=== PATIENT | female | born 1970 | race Caucasian/White ===

== ENCOUNTER 2016-07-02 07:43 | Day surgery (SDC) | payer OTHER | END 2016-07-02 13:51 | disposition home or self-care (01) | LOC: SDC 07:43 | DX: M23.312 Other meniscus derangements, anterior horn of medial meniscus, left knee (principal); M17.12 Unilateral primary osteoarthritis, left knee; M65.862 Other synovitis and tenosynovitis, left lower leg; M23.352 Other meniscus derangements, posterior horn of lateral meniscus, left knee; M06.9 Rheumatoid arthritis, unspecified; I10 Essential (primary) hypertension; G43.909 Migraine, unspecified, not intractable, without status migrainosus; G47.33 Obstructive sleep apnea (adult) (pediatric); R73.03 Prediabetes; F17.210 Nicotine dependence, cigarettes, uncomplicated; Z88.6 Allergy status to analgesic agent; Z88.8 Allergy status to other drugs, medicaments and biological substances; Z79.899 Other long term (current) drug therapy; Z82.49 Family history of ischemic heart disease and other diseases of the circulatory system; Z90.49 Acquired absence of other specified parts of digestive tract; Z90.89 Acquired absence of other organs | CPT/HCPCS: J0171; J1885; J2704; J2765 ==

== ENCOUNTER 2016-07-11 20:17 | Emergency (ER) | payer OTHER | END 2016-07-11 23:33 | disposition home or self-care (01) | LOC: ER 20:17 | DX: G43.909 Migraine, unspecified, not intractable, without status migrainosus (principal); F17.210 Nicotine dependence, cigarettes, uncomplicated; Z88.6 Allergy status to analgesic agent | CPT/HCPCS: 96361; 96365; 96367; 96375; J1100; J1200; J1885; J2765 ==

== ENCOUNTER 2016-07-19 23:55 | Emergency (ER) | payer OTHER | END 2016-07-20 01:31 | disposition home or self-care (01) | LOC: ER 23:55 | DX: L02.219 Cutaneous abscess of trunk, unspecified (principal); K21.9 Gastro-esophageal reflux disease without esophagitis; E11.9 Type 2 diabetes mellitus without complications; I10 Essential (primary) hypertension; F32.9 Major depressive disorder, single episode, unspecified; F41.9 Anxiety disorder, unspecified; G43.909 Migraine, unspecified, not intractable, without status migrainosus; F17.210 Nicotine dependence, cigarettes, uncomplicated; Z90.49 Acquired absence of other specified parts of digestive tract; Z90.710 Acquired absence of both cervix and uterus; Z79.84 Long term (current) use of oral hypoglycemic drugs; Z79.899 Other long term (current) drug therapy; Z88.5 Allergy status to narcotic agent; Z88.8 Allergy status to other drugs, medicaments and biological substances ==